=== PATIENT | female | born 1975 | race Caucasian/White ===

== ENCOUNTER → 2017-08-07 | Outpatient (CLI) | payer BC ==
[~2017-08-07] MED LIST: TAMS0.4C38 PO
--- NOTE | 2017-08-07 11:46 | DIAGNOSTIC IMAGING REPORT ---
CHEST 2 VIEWS ROUTINE CLINICAL HISTORY: N20.1 Ureteric [id number] PREOPERATIVE CHEST COMPARISON STUDY: No previous studies for comparison. FINDINGS: The cardiac and mediastinal contours are normal. There is no evidence of focal pulmonary consolidation. There is no evidence of failure. No pleural effusions are visualized.[ IMPRESSION: No active disease in the chest. Electronically signed by: Odell Alarcon M.D. 08/07/2017 11:45 AM Dictated Date/Time: 08/07/2017 11:45 AM
[2017-08-07 12:13] LABS: BASO % 0.6 %; BASO ABS # 0.07 K/uL (0-0.2); COMPLETE YES; EOS % 2.9 %; HEMATOCRIT 42.7 % (37-47); IG% 0.4 %; LYMPH ABS # 2.49 K/uL (1.2-3.4); MEAN CELL VOLUME 88.2 fL (80-100); MEAN CORPUSCULAR HEMOGLOBIN 29.8 pg (25-34); MEAN CORPUSCULAR HGB CONC 33.7 g/dl (32-36); MEAN PLATELET VOLUME 8.8 fL (7.4-10.4); MONO % 6.1 %; PLATELET COUNT 213 K/uL (130-400); RED BLOOD COUNT 4.84 M/uL (4.2-5.4); WHITE BLOOD COUNT 12.47 K/uL (4.8-10.8)
[2017-08-07 12:36] LABS: BLOOD UREA NITROGEN 10 mg/dl (7-18); BUN/CREATININE RATIO 12.6 (10-20); CARBON DIOXIDE 26 mmol/L (21-32); CHLORIDE 106 mmol/L (98-107); CREATININE 0.75 mg/dl (0.60-1.20); POTASSIUM 4.1 mmol/L (3.5-5.1); SODIUM 138 mmol/L (136-145)
== END | disposition home or self-care (01) ==
LOC: C.CPL 11:00
PROVIDERS: ATTEND Urology
DX: Z01.812 Encounter for preprocedural laboratory examination (principal); Z01.818 Encounter for other preprocedural examination; Z01.810 Encounter for preprocedural cardiovascular examination; N20.1 Calculus of ureter

== ENCOUNTER → 2017-08-15 | Day surgery (SDC) | payer BC ==
[2017-08-11 10:11] VITALS: Ht 152.4 cm; Wt 79.5 kg
[~2017-08-15] VITALS: Ht 152.4 cm; Wt 79.5 kg
[~2017-08-15] MED LIST changes: +ACETAMINOPHEN 325 MG TAB PO PRN; +ATROPINE SULFATE 0.1 MG/ML 5ML SYR IV PRN; +CIPROFLOXACIN 400MG / D5W IV SCH; +DEXAMETHASONE SOD INJ 4 MG/ML VIAL ONE; +FENTANYL CITRATE INJ 50 MCG/1 ML 2 ML VIAL IV PRN; +FENTANYL CITRATE INJ 50 MCG/1 ML 2 ML VIAL ONE; +LABETALOL HCL IV 5 MG/ML 20ML IV PRN; +LACTATED RINGER'S 1000ML 1,000 ML IV SCH; +LIDOCAINE HCL 2% 2 ML VIAL (20MG/ML) ONE; +MIDAZOLAM HCL 1 MG/ML 2ML VIAL ONE; +ONDANSETRON INJ 2 MG/ML 2 ML VIAL IV PRN; +ONDANSETRON INJ 2 MG/ML 2 ML VIAL ONE; +OXYCODONE/ACETAMINOPHEN 5-325 TAB PO PRN; +PROPOFOL IV EMULSION 10 MG/ML 20 ML VIAL IV ONE; +SODIUM CHLORIDE 0.9% 1000ML 1,000 ML IV SCH
--- NOTE | 2017-08-15 09:05 | History & Physical Bridge Note ---
H&P Re-Evaluation Bridge Note: I have examined the patient, reviewed the History & Physical and in the interval since the performance of the History & Physical I have noted the following changes of clinical significance: No changes noted
--- NOTE | 2017-08-15 09:44 | Discharge Instructions-SurgCtr ---
Discharge Instructions Date of Service Aug 15, 2017. Visit Reason for Visit: Left Ureteric Stone Discharge Discharge Diagnosis / Problem: left renal stone Discharge Goals Goal(s): Decrease discomfort, Improve function, Increase independence, Improve disease control Activity Recommendations Activity Limitations: resume your previous activity Lifting Limitations: none Exercise/Sports Limitations: none May Resume Sexual Activity: when tolerated Shower/Bathe: no limitations Driving or Machine Use: no limitations Anesthesia . Post Anesthesia Instructions: If you have had General Anesthesia or IV Sedation: * Do not drive today. * Resume driving when surgeon permits. * Do not make important decisions or sign legal documents today. * Call surgeon for: 1. Temperature elevations greater than 101 degrees F. 2. Uncontrollable pain. 3. Excessive bleeding. 4. Persistent nausea and vomiting. 5. Medication intolerance (nausea, vomiting or rash). * For nausea and vomiting use only clear liquids such as: tea, soda, bouillon until nausea subsides, then gradually increase diet as tolerated. * If you have any concerns or questions, call your surgeon's office. If physician is unavailable and it is an emergency, call 911 or go to the nearest emergency room. . Instructions / Follow-Up Instructions / Follow-Up please keep your previously scheduled follow up appointment Diet Recommendations Home Diet: no limitations, resume previous diet Procedures Procedures Performed: Left Extracorporeal Shock Wave Lithotripsy Pending Studies Studies pending at discharge: no Medical Emergencies . Who to Call and When: Medical Emergencies: If at any time you feel your situation is an emergency, please call 911 immediately. . Non-Emergent Contact Non-Emergency issues call your: Urologist Call Non-Emergent contact if: you have a fever, temperature is above 101.5, your pain is not controlled, your pain is worsening . . "Provider Documentation" section prepared by Rogelio Villa. .
--- NOTE | 2017-08-15 09:46 | [facility] Operative Report ---
Operative Report Operative Date Aug 15, 2017. Pre-Operative Diagnosis Left Renal Stone Post-Operative Diagnosis Same Procedure(s) Performed Left Extracorporeal Shock Wave Lithotripsy Surgeon Dr. Yahaira Briggs Repair Manager Surgeon(s) None Estimated Blood Loss 0 mL Findings Left renal stone Specimens None Drains none Anesthesia Gen. Complication(s) None Disposition Recovery Room / PACU (stable) Indications Left renal stone Description of Procedure The patient was identified in the preoperative holding area, appropriate informed consent was reviewed and completed and the patient was transported to the operating suite. Upon arrival appropriate preoperative antibiotics were administered and general anesthesia induced. The patient was placed in supine position and the stone was localized under fluoroscopy. A total of 2500 shocks were delivered to the stone. There appeared to be good fragmentation of the stone. Details of this procedure can be found on the [facility] information sheet. At the conclusion of the case the patient was extubated and taken to the PACU in stable condition. There were no complications. I attest to the content of the Intraoperative Record and any orders documented therein. Any exceptions are noted below.
[2017-08-15 10:32] VITALS: TEMP 36.4
[2017-08-15 10:51] VITALS: BP 136/82; PULSE 73; O2SAT 100
--- NOTE | 2017-08-15 11:08 | Anesthesia Progress Nt - [facility] ---
Anesthesia Post Op Note Date & Time Aug 15, 2017 at 11:08 Vital Signs Pain Intensity: 0 Vital Signs Past 12 Hours Date Time Temp Pulse Resp B/P (MAP) Pulse Ox O2 Delivery O2 Flow Rate FiO2 08/15/17 10:51 73 16 136/82 (100) 100 Room Air 08/15/17 10:32 36.4 78 16 127/88 (101) 98 Room Air 08/15/17 10:23 69 15 08/15/17 10:23 69 15 98 08/15/17 10:21 139/78 08/15/17 10:18 69 15 08/15/17 10:18 69 15 97 08/15/17 10:16 130/88 08/15/17 10:15 36.3 73 16 130/88 97 Room Air 08/15/17 10:13 69 17 100 08/15/17 10:13 69 17 08/15/17 10:11 122/89 08/15/17 10:08 68 08/15/17 10:08 68 100 08/15/17 10:06 125/90 08/15/17 10:03 70 14 100 08/15/17 10:03 70 14 08/15/17 10:02 77 12 98 08/15/17 10:02 78 12 08/15/17 10:01 118/90 08/15/17 09:57 72 13 08/15/17 09:57 72 13 99 08/15/17 09:56 123/87 08/15/17 09:53 139/88 08/15/17 09:52 36.3 78 16 139/88 99 Mask 9 08/15/17 07:25 36.7 77 16 127/82 (97) 98 Room Air Notes Mental Status: alert / awake / arousable, participated in evaluation Pt Amnestic to Procedure: Yes Nausea / Vomiting: adequately controlled Pain: adequately controlled Airway Patency, RR, SpO2: stable & adequate BP & HR: stable & adequate Hydration State: stable & adequate Anesthetic Complications: no major complications apparent
== END | disposition home or self-care (01) ==
LOC: X.SURG 07:01
PROVIDERS: ATTEND Urology
DX: N20.0 Calculus of kidney (principal); F17.200 Nicotine dependence, unspecified, uncomplicated

== ENCOUNTER → 2017-08-15 | Outpatient (CLI) | payer BC ==
[~2017-08-15] MED LIST changes: -ACETAMINOPHEN 325 MG TAB PO PRN; -ATROPINE SULFATE 0.1 MG/ML 5ML SYR IV PRN; -CIPROFLOXACIN 400MG / D5W IV SCH; -DEXAMETHASONE SOD INJ 4 MG/ML VIAL ONE; -FENTANYL CITRATE INJ 50 MCG/1 ML 2 ML VIAL IV PRN; -FENTANYL CITRATE INJ 50 MCG/1 ML 2 ML VIAL ONE; -LABETALOL HCL IV 5 MG/ML 20ML IV PRN; -LACTATED RINGER'S 1000ML 1,000 ML IV SCH; -LIDOCAINE HCL 2% 2 ML VIAL (20MG/ML) ONE; -MIDAZOLAM HCL 1 MG/ML 2ML VIAL ONE; -ONDANSETRON INJ 2 MG/ML 2 ML VIAL IV PRN; -ONDANSETRON INJ 2 MG/ML 2 ML VIAL ONE; -OXYCODONE/ACETAMINOPHEN 5-325 TAB PO PRN; -PROPOFOL IV EMULSION 10 MG/ML 20 ML VIAL IV ONE; -SODIUM CHLORIDE 0.9% 1000ML 1,000 ML IV SCH
--- NOTE | 2017-08-15 06:59 | DIAGNOSTIC IMAGING REPORT ---
KUB HISTORY: Follow-up study in a patient with nephrolithiasis. Left-sided kidney stones. Preoperative exam. N20.1 Ureteric [id number] COMPARISON: Chest radiographs 08/07/2017. FINDINGS: The bowel gas pattern is non-obstructive. There is no organomegaly. Probable phleboliths of the pelvis. No definite right-sided nephrolithiasis. Left-sided renal calculi are noted with a 7 mm calculus projecting over the region of the left renal pelvis. No definite calculi within either ureter. No pneumoperitoneum or pneumatosis. No fracture. Corticated bone fragment lateral to the right acetabulum measuring 6 mm suggests os acetabuli. IMPRESSION: Left-sided nephrolithiasis with 7 mm calculus projecting over the region of the left renal pelvis. No definite right-sided nephrolithiasis or ureteral calculi identified. Electronically signed by: Cabrera Avilez M.D. 08/15/2017 6:57 AM Dictated Date/Time: 08/15/2017 6:55 AM
== END | disposition home or self-care (01) ==
LOC: C.RAD 06:43
PROVIDERS: ATTEND Urology
DX: N20.2 Calculus of kidney with calculus of ureter (principal)

== ENCOUNTER → 2017-08-27 | Outpatient (CLI) | payer BC ==
--- NOTE | 2017-08-27 11:21 | DIAGNOSTIC IMAGING REPORT ---
KUB CLINICAL HISTORY: 41 years-old Female presenting with N20.1 Ureteric [id number]. TECHNIQUE: Single supine view of the abdomen was obtained. COMPARISON: 08/15/2017. FINDINGS: Nonobstructive bowel gas pattern. No gross pneumoperitoneum. Allowing for bowel gas and stool, the previously noted calculus in the region of the left renal pelvis is no longer visualized. Few small left renal calculi again noted. No radiographically apparent right renal calculi. Stable appearance of pelvic phleboliths.. Osseous structures normal. IMPRESSION: 1. Left renal calculi. Previously noted calculus in the left renal pelvis is no longer visualized. No radiographically apparent right renal calculi. Electronically signed by: Mainor Gurrola M.D. 08/27/2017 11:19 AM Dictated Date/Time: 08/27/2017 11:01 AM
== END | disposition home or self-care (01) ==
LOC: C.RAD 10:46
PROVIDERS: ATTEND Urology
DX: N20.1 Calculus of ureter (principal)

== ENCOUNTER → 2017-08-27 | Outpatient (CLI) | payer BC | END | disposition home or self-care (01) | LOC: C.LABSPEC 17:10 | PROVIDERS: ATTEND Urology | DX: N20.0 Calculus of kidney (principal) ==

== ENCOUNTER 2020-05-27 06:41 | Observation (INO) ==
[2020-05-27] MEDS ORDERED: KETOROLAC 30 MG/ML VIAL IV STA (06:54)
[2020-05-27] MEDS ORDERED: ONDANSETRON INJ 2 MG/ML 2 ML VIAL IV STA (06:54)
[2020-05-27] MEDS ORDERED: SODIUM CHLORIDE 0.9% 1000ML 1,000 ML IV ONE (06:55)
[2020-05-27] MEDS: HYDROmorphone INJ 1 MG/ML SYRINGE IV PRN ×2 (07:10→08:37)
[2020-05-27 07:22] LABS: Basophils # (auto) 0.03 K/uL (0-0.2); Basophils % (auto) 0.2 %; Eosinophils # (auto) 0.01 K/uL (0-0.5); Eosinophils % (auto) 0.1 %; Hemoglobin 14.9 g/dL (12.0-16.0); Immature Granulocytes # (auto) 0.09 K/uL (0.00-0.02); Immature Granulocytes % (auto) 0.5 %; Lymphocytes # (auto) 1.44 K/uL (1.2-3.4); Lymphocytes % (auto) 7.8 %; Mean Corpuscular Hemoglobin 29.4 pg (25-34); Mean Corpuscular Hgb Conc 33.9 g/dL (32-36); Mean Corpuscular Volume 86.8 fL (80-100); Mean Platelet Volume 8.7 fL (7.4-10.4); Monocytes # (auto) 0.83 K/uL (0.11-0.59); Monocytes % (auto) 4.5 %; Neutrophils # (auto) 16.01 K/uL (1.4-6.5); Neutrophils % (auto) 86.9 %; Platelet Count 259 K/uL (130-400); RDW Coefficient of Variation 13.7 % (11.5-14.5); RDW Standard Deviation 44.2 fL (36.4-46.3); Red Blood Count 5.07 M/uL (4.2-5.4); White Blood Count 18.41 K/uL (4.8-10.8)
[2020-05-27 07:27] LABS: Appearance Urine Turbid (Clear); Bacteria Urine Automated Negative (Negative); Blood Urine 3+ (Negative); Color Urine Orange; Epithelial Cell Urine Auto >30 /lpf (0-5); Glucose Urine UA Trace (Negative); Ketones Urine Trace (Negative); Leukocyte Esterase Urine 1+ (Negative); Nitrite Urine Negative (Negative); Protein Urine 2+ (Negative); RBC Urine Automated >30 /hpf (0-4); Specific Gravity Urine 1.023 (1.000-1.030); Urobilinogen Urine Negative (Negative)
[2020-05-27 07:29] LABS: Bilirubin Urine Negative (Negative); Ictotest Urine Negative (Negative)
[2020-05-27 07:39] LABS: BUN Creatinine Ratio 12.3 (10-20); Calcium 9.3 mg/dl (8.5-10.1); Creatinine Clr Calc Pharmacy 77.5 ml/min; Est GFR (Non-African American) 79.4; Potassium 3.6 mmol/L (3.5-5.1)
[2020-05-27 07:42] LABS: Bilirubin,Total 0.4 mg/dl (0.2-1); Globulin 4.1 gm/dl (2.5-4.0); Total Protein 8.1 gm/dl (6.4-8.2)
[2020-05-27] MEDS ORDERED: cefTRIAXone SODIUM 2,000 MG/70 ML BAG IV STA (07:58)
--- NOTE | 2020-05-27 07:58 | Ultrasound Report ---
RENAL ULTRASOUND CLINICAL HISTORY: Left flank pain. COMPARISON STUDY: KUB May 25, 2020. TECHNIQUE: Sonography of the kidneys and the urinary bladder was performed. FINDINGS: Right kidney measures 10.7 cm in maximal dimension and the left measures 11 cm. There is no right hydronephrosis. There is mild left hydronephrosis. Note is made of a 6 mm calculus/fragment wi thin the left renal pelvis. There may be a few additional smaller left renal calculi or fragments. No ureteral calculi are identified although these may be occult by sonography. Bladder suboptimally ass essed given underdistention. Ureteral jets could not be assessed for. IMPRESSION: 1. Mild left hydronephrosis. Several left renal calculi/fragments. No ureteral calculi identified alt brigida these are often occult by sonography. 2. No right hydronephrosis. ACT 112: Negative or not required by law. Electronically signed by: Mitul Coleman M.D. 05/27/2020 7:57 AM
--- NOTE | 2020-05-27 07:59 | XRay Report ---
KUB HISTORY: Acute left-sided flank pain Pt c/o left sided flank pain COMPARISON: Renal ultrasound of same day, KUB 05/25/2020 FINDINGS: The bowel gas pattern is non-obstructive. Moderate fecal retention. There is no organomegal y. Renal shadows are partially obscured by bowel gas. Interval fragmentation of the 8 mm left ureter al calculus. There are now 2 calculi within the region of the left renal pelvis measuring up to 4 mm with numerous stone fragments within the left hemipelvis measuring up to approximately 3 mm. No pneum operitoneum or pneumatosis. No fracture. IMPRESSION: Interval fragmentation of the left renal pelvis calculus. Small calculi within the left renal pelvis measure up to 4 mm with numerous stone fragments within the distal left ureter measuring up to approx imately 3 mm. ACT 112: Negative or not required by law. The above report was generated using voice recognition software. It may contain grammatical, syntax o r spelling errors. Electronically signed by: Cabrera Avilez M.D. 05/27/2020 7:58 AM
[2020-05-27] MEDS ORDERED: METOCLOPRAMIDE HCL INJ 5 MG/ML 2 ML VIAL IV STA (08:48)
--- NOTE | 2020-05-27 09:02 | History & Physical Report ---
Date of Service May 27, 2020 Assessment & Plan (1) Renal colic: Admission and Anticipated Discharge Date Admission Date: PT with stone fragmentation in office 05/26, now with renal colic intractable pain, will be observed for pain control and consideration of uti poa History of Present Illness Primary Care Provider: Faraz Donohue Presents 1 day after a urological procedure for stone with significant renal colic. He says that after the procedure she was passing some stone fragments however she developed significant left-sided and front and back abdominal pain so she with nausea inability to keep food or liquids down. Emergency department she was unable to be settled down to the point where she was able to go home and she is recommended for observation for symptom control Allergies Allergy/AdvReac Type Severity Reaction Status Date / Time No Known Allergies Allergy Verified 05/27/20 07:01 Home Medications Home Medications Medication Instructions Recorded Confirmed Type hydrocodone-acetaminophen 1 tab PO Q6H PRN #20 tab 05/26/20 05/27/20 Rx cefdinir 300 mg PO BID 10 Days #20 cap 05/27/20 Rx docusate sodium [Colace] 100 mg PO BID #60 cap 05/27/20 Rx oxycodone 5 mg PO Q6H PRN #14 tab 05/27/20 Rx sennosides [Senokot] 8.6 mg PO HS #30 tab 05/27/20 Rx Past Med/Surg History Medical History Kidney stones Surgical History History of lithotripsy History of lung biopsy DECEMBER 2019/NOT ENOUGH SAMPLE/TO HAVE CT SCAN MAY OR JUN 2020 Family History Father Lymphoma Hypertension Grandmother Family history of colon cancer Social History Smoking Status: Never smoker Cigarettes Per Day: .5PPD/ ADVISED NPO; Hx Alcohol Use: No Preferred Language: Hungarian Communication Ability: Effective Quality Consultant Required: No Beliefs That Will Affect Care: None marital status: Current Living Situation: Spouse current occupational status: employed Other Information That Helps Us Care for You: No Feels Safe at Home: Yes Safety Concerns: Feels Safe At This Time Assistive Devices: None Review of Systems Review of Systems: Mild distress and fatigue no headache, blurry or double vision no speech or swallowing issues no chest pain, pressure or palpitations no shortness of breath, cough or wheezes Left-sided abdominal pain associated with nausea but he has but no vomiting Moderate dysuria and frequency no focal joint pain or swelling no back pain, CVA tenderness or radicular pain no bruising, bleeding or rashes no focal signs of weakness or numbness or altered sensation no complaints or anxiety or depression. Physical Exam Physical Exam: The patient appeared well nourished and normally developed. Vital signs as documented. Head exam is normocephalic atraumatic no scleral icterus Neck is without JVD, thyromegaly, or carotid bruits. Lungs are clear to auscultation, no focal loss of breath sounds Cardiac exam, Rhythm is regular.. No murmurs, rubs or gallops. Abdominal exam reveals normal bowel sounds, soft left-sided abdominal pain guarding but no rebound Extremities are nonedematous and both pedal pulses are present Neurologic exam is alert and oriented, no focal loss of strength or sensation Skin is without bruises or rashes Psychologically is without concerns for anxiety or depression. Results & Data Results & Data ([facility]) Vital Signs (Past 12 Hours) Vital Signs Temp Pulse Pulse Resp BP BP Pulse Ox 05/27/20 07:47 82 18 150/96 H 96 05/27/20 07:13 98 05/27/20 06:45 98.6 F 88 20 189/98 H 99 PG Care Time/CCT Total # of Minutes Spent Total Time Spent with Patient: Total time spent is greater than 50% in coordination of care (as documented) at patient's floor/unit and/or counseling patient: Coding Level of Care Code 60389 Initial Inpt Care Lvl 2 Diagnoses Renal colic N23
--- NOTE | 2020-05-27 09:32 | Pharmacy Report ---
ED Pharmacist Progress Note - ED Pharmacist Progress Note Date of Service:: May 27, 2020 Notes:: Received phone call from [facility] requesting clarification on Oxycodone Rx. Pharmacist stated the patient had Rx for Hydrocodone/APAP filled yesterday by a different provider. I spoke w/ Dr Armstrong who stated the patient is being instructed to stop taking the Hydrocodone/APAP and take the Oxycodone instead. He stated he was aware of the prior Rx. This info was relayed to the [facility] Pharmacist.
[2020-05-27] MEDS ORDERED: TAMSULOSIN HCL 0.4 MG CAP PO ONE (09:59)
[2020-05-27] MEDS ORDERED: HYDROmorphone INJ 1 MG/ML SYRINGE IV PRN (09:59)
[2020-05-27] MEDS ORDERED: HYDROmorphone INJ 0.5 MG/0.5 ML SYR IV PRN (09:59)
[2020-05-27] MEDS ORDERED: ONDANSETRON INJ 2 MG/ML 2 ML VIAL IV PRN (09:59)
[2020-05-27] MEDS ORDERED: ACETAMINOPHEN 325 MG TAB PO PRN (09:59)
[2020-05-27] MEDS ORDERED: ALUMINUM/MAGNESIUM SUSP 30 ML UDC PO PRN (09:59)
[2020-05-27] MEDS: KETOROLAC TROMETHAMINE 15 MG/ML VIAL IV PRN (10:44)
[2020-05-27] MEDS: SODIUM CHLORIDE 0.9% 1000ML 1,000 ML IV SCH ×2 (10:45→18:40)
--- NOTE | 2020-05-27 14:01 | Emergency Department Note ---
History of Present Illness General Chief complaint: Pain (Generalized) Stated complaint: PAIN,NAUSEA,VOMITING Time Seen by Provider: 05/27/20 06:50 Source: patient, RN notes reviewed and old records reviewed Mode of arrival: ambulatory Limitations: no limitations History of Present Illness Provider complaint: left sided flank pain Onset (ago): day(s) 1 Location: back Radiation: flank Severity: moderate Pain Consistency: + intermittent Maximum Pain Intensity: 5 Current Pain Intensity: 5 Quality: + stabbing Relieved By: + immobilization Exacerbated By: + movement Associated symptoms: + nausea/vomiting; no chest pain, no diaphoresis, no fever/chills and no headaches Treatments prior to arrival: other (Manlius) This is a 44-year-old female who presents to the emergency department complaining of left-sided flank pain. The patient had a nephrolithiasis performed yesterday and is having intractable pain despite taking her Manlius. She denies any fevers or chills however feels extremely nauseous. She describes the pain as a burning sensation. She reports movement makes the pain worse however immobilization makes the pain better. Home Medications Home Medications Medication Instructions Recorded Confirmed Type hydrocodone-acetaminophen 1 tab PO Q6H PRN #20 tab 05/26/20 05/27/20 Rx cefdinir 300 mg PO BID 10 Days #20 cap 05/27/20 Rx docusate sodium [Colace] 100 mg PO BID #60 cap 05/27/20 Rx oxycodone 5 mg PO Q6H PRN #14 tab 05/27/20 Rx sennosides [Senokot] 8.6 mg PO HS #30 tab 05/27/20 Rx Allergies Allergy/AdvReac Type Severity Reaction Status Date / Time No Known Allergies Allergy Verified 05/27/20 07:01 Past Med/Surg History Medical History Kidney stones Surgical History History of lithotripsy History of lung biopsy DECEMBER 2019/NOT ENOUGH SAMPLE/TO HAVE CT SCAN MAY OR JUN 2020 Family History Father Lymphoma Hypertension Grandmother Family history of colon cancer Social History Smoking Status: Never smoker Cigarettes Per Day: .5PPD/ ADVISED NPO; Hx Alcohol Use: No Preferred Language: Guinean Communication Ability: Effective 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 Beliefs That Will Affect Care: None marital status: Current Living Situation: Spouse current occupational status: employed Other Information That Helps Us Care for You: No Feels Safe at Home: Yes Safety Concerns: Feels Safe At This Time Assistive Devices: None Review of Systems A total of 10 systems reviewed and were otherwise negative Physical Exam Vital Signs Vital Signs - 24 hr 05/27/20 06:45 05/27/20 07:13 05/27/20 07:47 Temperature 37 C Temperature Source Oral Pulse Rate 88 Pulse Rate [Left Finger] 82 Pulse Rhythm Regular Pulse Strength Normal Respiratory Rate 20 18 Respiratory Effort / Characteristics Non-Labored Spontaneous Respiratory Depth Normal Blood Pressure 189/98 H Blood Pressure [Left Arm] 150/96 H Blood Pressure Mean 128 Blood Pressure Mean [Left Arm] 114 Blood Pressure Position Sitting Pulse Oximetry 99 98 96 Oxygen Delivery Method Room Air Room Air Room Air Sepsis Recent Fever Within 48 Hours No Sepsis New/Unexplained Change in Mental Status No Sepsis Action Taken by Nursing No Action Required 05/27/20 09:00 Temperature Temperature Source Pulse Rate Pulse Rate [Left Finger] 78 Pulse Rhythm Pulse Strength Respiratory Rate 20 Respiratory Effort / Characteristics Respiratory Depth Blood Pressure Blood Pressure [Left Arm] 164/94 H Blood Pressure Mean Blood Pressure Mean [Left Arm] 117 Blood Pressure Position Pulse Oximetry 95 Oxygen Delivery Method Room Air Sepsis Recent Fever Within 48 Hours Sepsis New/Unexplained Change in Mental Status Sepsis Action Taken by Nursing VITAL SIGNS - Vital signs and nursing notes were reviewed. GENERAL - 44-year-old female appearing uncomfortable. Communicates well with provider and answers questions appropriately. SKIN - Without rashes. HEAD - NC/AT. EYES - PERRL with EOMI bilaterally. Sclera anicteric. Palpebral conjunctiva pink and moist with no injection noted. EARS - No deformities of external structures noted on gross examination bilaterally. No pain elicited with palpation of the tragus bilaterally. External auditory canals without discharge or otorrhea. Tympanic membranes pearly mejia without retraction or bulging. No fluid or purulent material visualized behind the TM. Handle of malleus, umbo, cone of light, pars tensa/flaccid all easily visualized. NOSE - Midline and without cyanosis. No epistaxis or purulent drainage noted. Septum midline without deviation or septal hematoma noted. MOUTH/OROPHARYNX - Without perioral cyanosis. Buccal mucosa pink and moist and without leukoplakia. Tongue midline with equal elevation of palate bilaterally. No tonsillar hypertrophy, erythema, or exudates noted. dentition noted. NECK - Neck with FROM. Supple to palpation. lymphadenopathy noted. No nuchal rigidity. LUNGS - Chest wall symmetric without accessory muscle use, intercostals retractions, or central cyanosis. Normal vesicular breath sounds CTA B/L. No wheezes, rales, or rhonchi appreciated. CARDIAC - RRR with S1/S2. No murmur, rubs, or gallops appreciated. ABDOMEN - Abdominal contour without pulsations or visible masses. BS normoactive all four quadrants. No tenderness, palpable masses, hepatosplenomegaly, or ascites noted. EXTREMITIES - No clubbing or peripheral cyanosis. No pretibial edema present. +3/5 radial, posterior tibial, and dorsalis pedis pulses palpated throughout. +5/5 strength noted in UE/LE bilaterally. NEUROLOGIC - Cranial nerves II through XII grossly intact. Sensory intact to light touch throughout. Patellar reflexes +2/4. PSYCH - A&Ox3 and cooperates fully with examiner. Pt is very pleasant and interacts well with examiner. Course Administered Medications Sodium Chloride (Nss 1000ml) 1,000 mls @ 125 mls/hr IV .Q8H GISELE Stop: 06/26/20 10:14 Last Admin: 05/27/20 10:45 Dose: 125 mls/hr Documented by: [id number] Ketorolac Tromethamine (Ketorolac Tromethamine 15 Mg/Ml Vial) 15 mg IV Q6H PRN PRN Reason: Pain Stop: 06/01/20 09:58 Last Admin: 05/27/20 10:44 Dose: 15 mg Documented by: [id number] Discontinued Medications Hydromorphone HCl (Hydromorphone Inj 1 Mg/Ml Syringe) 1 mg IV Q15M PRN PRN Reason: Pain Stop: 06/10/20 06:53 Last Admin: 05/27/20 08:37 Dose: 1 mg Documented by: [id number] Admin: 05/27/20 07:10 Dose: 1 mg Documented by: [id number] Sodium Chloride (Nss 1000ml) 1,000 mls @ 999 mls/hr IV .Q1H1M ONE Stop: 05/27/20 07:55 Last Infusion: 05/27/20 08:16 Dose: 0 mls/hr Documented by: [id number] Admin: 05/27/20 07:09 Dose: 999 mls/hr Documented by: [id number] Ceftriaxone Sodium (Rocephin) 2,000 mg in 70 mls @ 140 mls/hr IV NOW STA Stop: 05/27/20 08:27 Last Infusion: 05/27/20 08:46 Dose: 0 mls/hr Documented by: [id number] Admin: 05/27/20 08:21 Dose: 140 mls/hr Documented by: [id number] Ketorolac Tromethamine (Ketorolac 30 Mg/Ml Vial) 30 mg IV NOW STA Stop: 05/27/20 06:55 Last Admin: 05/27/20 07:10 Dose: 30 mg Documented by: [id number] Metoclopramide HCl (Metoclopramide Hcl Inj 5 Mg/Ml 2 Ml Vial) 10 mg IV NOW STA Stop: 05/27/20 08:49 Last Admin: 05/27/20 09:41 Dose: Not Given Documented by: [id number] Ondansetron HCl (Ondansetron Inj 2 Mg/Ml 2 Ml Vial) 4 mg IV NOW STA Stop: 05/27/20 06:55 Last Admin: 05/27/20 07:10 Dose: 4 mg Documented by: [id number] Tamsulosin HCl (Tamsulosin Hcl 0.4 Mg Cap) 0.4 mg PO NOW ONE Stop: 05/27/20 10:00 Last Admin: 05/27/20 13:29 Dose: 0.4 mg Documented by: [id number] Medical Decision Making Differential Diagnosis Appendicitis, ovarian cyst, ovarian torsion, ectopic , TOA, PID, infections, diverticulitis, UTI, obstruction, mesenteric ischemia, aortic pathology, inflammatory bowel disease, renal colic, PUD, pancreatitis, biliary pathology, hernia, volvulus, constipation, as well as other pathologies. Medical Records Attestation: I reviewed the patient's medical records. Home Medications Current Medication List: was personally reviewed by me Laboratory Data Attestation: I reviewed the patient's lab results. Result diagrams: 05/27/20 07:08 05/27/20 07:08 Lab Results 05/27/20 05/27/20 05/27/20 Range/Units 07:08 07:08 07:09 WBC 18.41 H (4.8-10.8) K/uL RBC 5.07 (4.2-5.4) M/uL Hgb 14.9 (12.0-16.0) g/dL Hct 44.0 (37-47) % MCV 86.8 (80-100) fL MCH 29.4 (25-34) pg MCHC 33.9 (32-36) g/dL RDW Std Deviation 44.2 (36.4-46.3) fL RDW Coeff of Lupis 13.7 (11.5-14.5) % Plt Count 259 (130-400) K/uL MPV 8.7 (7.4-10.4) fL Immature Gran % (Auto) 0.5 % Neut % (Auto) 86.9 % Lymph % (Auto) 7.8 % [place] % (Auto) 4.5 % Eos % (Auto) 0.1 % Baso % (Auto) 0.2 % Neut # (Auto) 16.01 H (1.4-6.5) K/uL Lymph # (Auto) 1.44 (1.2-3.4) K/uL [place] # (Auto) 0.83 H (0.11-0.59) K/uL Eos # (Auto) 0.01 (0-0.5) K/uL Baso # (Auto) 0.03 (0-0.2) K/uL Immature Gran # (Auto) 0.09 H (0.00-0.02) K/uL Sodium 139 (136-145) mmol/L Potassium 3.6 (3.5-5.1) mmol/L Chloride 105 (98-107) mmol/L Carbon Dioxide 27 (21-32) mmol/L Anion Gap 7.0 (3-11) BUN 11 (7-18) mg/dl Creatinine 0.89 (0.6-1.2) mg/dl Est Cr Clr Drug Dosing 77.5 ml/min Est GFR ( Amer) 92.0 Est GFR (Non-Af Amer) 79.4 BUN/Creatinine Ratio 12.3 (10-20) Glucose 162 H (70-99) mg/dl Calcium 9.3 (8.5-10.1) mg/dl Total Bilirubin 0.4 (0.2-1) mg/dl AST 13 L (15-37) U/L ALT 26 (12-78) U/L Alkaline Phosphatase 97 (45-117) U/L Total Protein 8.1 (6.4-8.2) gm/dl Albumin 4.0 (3.4-5.0) gm/dl Globulin 4.1 H (2.5-4.0) gm/dl Albumin/Globulin Ratio 1.0 (0.9-2) Lipase 92 (73-393) U/L Urine Color [place] Urine Appearance Turbid A (Clear) Urine pH 5.0 (4.5-7.5) Ur Specific [place] 1.023 (1.000-1.030) Urine Protein 2+ H (Negative) Urine Glucose (UA) Trace H (Negative) Urine Ketones Trace H (Negative) Urine Blood 3+ H (Negative) Urine Nitrite Negative (Negative) Urine Bilirubin Negative (Negative) Urine Urobilinogen Negative (Negative) Ur Leukocyte Esterase 1+ H (Negative) Urine WBC (Auto) 10-30 H (0-5) /hpf Urine RBC (Auto) >30 H (0-4) /hpf U Hyaline Cast (Auto) 1-5 (0-5) /lpf U Epithel Cells (Auto) >30 H (0-5) /lpf Urine Bacteria (Auto) Negative (Negative) Imaging Data Radiologist's Impression: [place] [phone] Ultrasound Report Patient: MIRANDA JACOBS Date: 05/27/20 MR#: [id number]: [address] [facility] Acct ID:[id number]: Date: 1975[facility] Zip: [place] [address] Age: 44Location: ED Sex: FRoom/Bed: Att Phy:Diagnosis: PAIN,NAUSEA,VOMITING Nisa Phy: Faraz Donohue M.D.Service Date: 05/27/20 Fam Phy: Jorge Briggs MDInterpreting Phy: Mitul Coleman MD Admit Phy: Ordering Phy: Michael Armstrong MD cc: ~ RENAL ULTRASOUND CLINICAL HISTORY: Left flank pain. COMPARISON STUDY: KUB May 25, 2020. TECHNIQUE: Sonography of the kidneys and the urinary bladder was performed. FINDINGS: Right kidney measures 10.7 cm in maximal dimension and the left measures 11 cm. There is no right hydronephrosis. There is mild left hydronephrosis. Note is made of a 6 mm calculus/fragment within the left renal pelvis. There may be a few additional smaller left renal calculi or fragments. No ureteral calculi are identified although these may be occult by sonography. Bladder suboptimally assessed given underdistention. Ureteral jets could not be assessed for. IMPRESSION: 1. Mild left hydronephrosis. Several left renal calculi/fragments. No ureteral calculi identified although these are often occult by sonography. 2. No right hydronephrosis. ACT 112: Negative or not required by law. Electronically signed by: Mitul Coleman M.D. 05/27/2020 7:57 AM Dictated: 05/27/20 0753 Transcribed: 05/27/20 0753 [place], [place] [phone] XRay Report Patient: MIARNDA JACOBS Date: 05/27/20 MR#: [id number]: [address] [facility] Acct ID:[id number]: Date: 1975[facility] Zip: [place] [address] Age: 44Location: ED Sex: FRoom/Bed: Att Phy:Diagnosis: PAIN,NAUSEA,VOMITING Nisa Phy: Faraz Donohue M.D.Service Date: 05/27/20 Fam Phy: Jorge Briggs MDInterpreting Phy: Darvin Avilez Admit Phy: Ordering Phy: Michael Armstrong MD cc: ~ KUB HISTORY: Acute left-sided flank pain Pt c/o left sided flank pain COMPARISON: Renal ultrasound of same day, KUB 05/25/2020 FINDINGS: The bowel gas pattern is non-obstructive. Moderate fecal retention. There is no organomegaly. Renal shadows are partially obscured by bowel gas. Interval fragmentation of the 8 mm left ureteral calculus. There are now 2 calculi within the region of the left renal pelvis measuring up to 4 mm with numerous stone fragments within the left hemipelvis measuring up to approximately 3 mm. No pneumoperitoneum or pneumatosis. No fracture. IMPRESSION: Interval fragmentation of the left renal pelvis calculus. Small calculi within the left renal pelvis measure up to 4 mm with numerous stone fragments within the distal left ureter measuring up to approximately 3 mm. ACT 112: Negative or not required by law. The above report was generated using voice recognition software. It may contain grammatical, syntax or spelling errors. Electronically signed by: Cabrera Avilez M.D. 05/27/2020 7:58 AM Dictated: 05/27/20 0755 Transcribed: 05/27/20 0755 [facility] Narrative This is a 44-year-old female who presents emergency department complaining of left-sided flank pain after nephrolithiasis. The patient has a large elevation in her white blood cell count and she was started on IV antibiotics for her urine. She was given IV Rocephin. Patient was given Dilaudid and Zofran here. The patient continued to be nauseated therefore I did discuss the case with the hospitalist service who did agree to admit the patient. Patient is in agreement with the treatment plan. Patient was seen and evaluated as above in room B10. Review was performed of nursing notes and vital signs. I did review pertinent previous visits and patient history. After obtaining a thorough history and physical examination the above work up was performed. While in the department, I personally reevaluated the patient several times and each time the patient was found to be resting comfortably. The patient was educated upon management, educated upon todays findings/results, educated upon importance of follow up from today's visit, educated upon symptoms in which to return, had questions answered prior to discharge, verbalized understanding, and was discharged home in good condition. An order was placed for continuous cardiac monitoring. The monitor shows a rate of 80 with NS rhythm. The patient was evaluated during the global COVID-19 pandemic, and that diagnosis was suspected/considered upon their initial presentation. Their evaluation, treatment and testing was consistent with current guidelines for patients who present with complaints or symptoms that may be related to COVID- 19. Impression & Plan Nephrolithiasis, Intractable pain Discharge Plan Visit Data Chief Complaint: Pain (Generalized) Stated Complaint: PAIN,NAUSEA,VOMITING ED Provider: Michael Armstrong Discharge Problem: Nephrolithiasis, Intractable pain Patient Disposition: Admitted As Inpatient Discharge Instructions Interventions: ED Discharge Assessment Last Done: 05/27/20 09:46
[2020-05-27] MEDS ORDERED: TAMSULOSIN HCL 0.4 MG CAP PO SCH (21:00)
[2020-05-28] MEDS: SODIUM CHLORIDE 0.9% 1000ML 1,000 ML IV SCH (02:12)
[2020-05-28 06:23] LABS: Hematocrit (blood only) 40.2 % (37-47); Hemoglobin 13.7 g/dL (12.0-16.0); Mean Corpuscular Hemoglobin 29.6 pg (25-34); Mean Corpuscular Hgb Conc 34.1 g/dL (32-36); Mean Corpuscular Volume 86.8 fL (80-100); Mean Platelet Volume 8.8 fL (7.4-10.4); Platelet Count 207 K/uL (130-400); RDW Coefficient of Variation 13.9 % (11.5-14.5); Red Blood Count 4.63 M/uL (4.2-5.4); White Blood Count 13.49 K/uL (4.8-10.8)
[2020-05-28 06:53] LABS: BUN Creatinine Ratio 8.5 (10-20); Calcium 8.4 mg/dl (8.5-10.1); Creatinine Clr Calc Pharmacy 54.7 ml/min; Est GFR (African American) 60.4; Est GFR (Non-African American) 52.1; Potassium 3.7 mmol/L (3.5-5.1)
[2020-05-28] MEDS ORDERED: cefTRIAXone SODIUM 2,000 MG in DEXTROSE 5% 50 ML IV SCH (08:00)
[2020-05-28] MEDS: KETOROLAC TROMETHAMINE 15 MG/ML VIAL IV PRN (11:19)
[2020-05-28] MEDS ORDERED: HydrALAZINE HCL 20 MG/ML VIAL IV PRN (14:48)
--- NOTE | 2020-05-28 15:52 | Discharge Summary ---
Date of Service May 28, 2020 Admission HPI Per Admitting Provider Presents 1 day after a urological procedure for stone with significant renal colic. He says that after the procedure she was passing some stone fragments however she developed significant left-sided and front and back abdominal pain so she with nausea inability to keep food or liquids down. Emergency department she was unable to be settled down to the point where she was able to go home and she is recommended for observation for symptom control Principal Diagnosis Renal colic status post lithotripsy Discharge Exam The patient appeared well Vital signs as documented. Lungs are clear to auscultation and appear unlabored Cardiac exam, Rhythm is regular.. No murmurs, rubs or gallops. Abdominal exam reveals normal bowel sounds, soft non tender, no masses Extremities are nonedematous and both pedal pulses are normal. Neurologic exam is alert and oriented, no focal loss of strength or sensation Skin is without bruises or rashes Psychologically is without concerns for anxiety or depression. Discharge Data Allergies Allergy/AdvReac Type Severity Reaction Status Date / Time No Known Allergies Allergy Verified 05/27/20 07:01 Consultations 05/27/20 08:53 ED Decision to Admit Stat Ordered Studies 05/27/20 06:54 US renal/blad retro comp Stat 05/28/20 12:05 US renal/blad retro comp Routine Hospital Course (1) Renal colic: Patient made with renal colic status post lithotripsy she was given parenteral pain control Flomax and hydration. Her symptoms resolved. Urine culture was pinpoint growth reintubating she is on cefdinir. She will be discharged home with urology follow-up Total Time Total Time Spent Total Time Spent (In Minutes): Discharge 30 including 2 visits with the patient and discussion with radiology Discharge Plan Discharge Items Patient Disposition: Home - Self-Care Reason For Visit: RENAL COLIC Discharge Diagnosis: renal colic Activity: Resume your previous activity Non-emergency contact: Urologist Call non-emergency contact if: your symptoms worsen Follow-up/Referrals: Faraz Donohue M.D. [Primary Care Provider] - Diet: Regular Addtl Attending Provider Instructions: Please follow-up with urology for further evaluation after lithotripsy. Drink plenty of fluids and rest Pending Studies at Discharge: No Stand-Alone Forms: [employer], Smoking Cessation Medications and DC Order Prescriptions: New oxycodone 5 mg tablet 5 mg PO Q6H PRN (Reason: pain) Qty: 14 RF: 0 sennosides [Senokot] 8.6 mg tablet 8.6 mg PO HS Qty: 30 RF: 0 docusate sodium [Colace] 100 mg capsule 100 mg PO BID Qty: 60 RF: 0 cefdinir 300 mg capsule 300 mg PO BID 10 Days Qty: 20 RF: 0 tamsulosin 0.4 mg Capsule 0.4 mg PO HS Qty: 30 RF: 0 ondansetron HCl [Zofran] 4 mg tablet 4 mg PO Q8H PRN (Reason: nausea and vomiting) Qty: 10 RF: 0 Continued hydrocodone-acetaminophen 5-325 mg tablet 1 tab PO Q6H PRN (Reason: pain) Qty: 20 RF: 0 Discharge Orders: Discharge Order (Routine); Ordered 05/28/20 Ordered By: Trey Zambrano Admission Data Admit Date/Time: 05/27/20 09:07 Attending Provider: Trey Zambrano Admit Provider: Trey Zambrano Primary Care Provider: Faraz Donohue Other Providers: Trey Zambrano Coding Level of Care Code D/C Day Management >30 mins Diagnoses Renal colic N23
== END 2020-05-28 16:30 | disposition home or self-care (01) ==
LOC: ED 06:41 → 3E 06:41
DX: N13.30 Unspecified hydronephrosis; F17.210 Nicotine dependence, cigarettes, uncomplicated; Z79.899 Other long term (current) drug therapy; N23 Unspecified renal colic